=== PATIENT | male | born 1980 | race Caucasian/White ===

== ENCOUNTER 2017-02-26 20:08 | Emergency (ER) | payer OTHER ==
--- NOTE | ~2017-02-26 | CR7 ---
[facility]. [facility] A Service of [facility] & [facility] RADIOLOGY TEXT RESULTS PATIENT: ROB JORDAN LOCATION: SED : [birth year] UNIT #: [id number] AGE: [address]: Alexandre Avalos MD SEX: M ORDER DR: [id number] [place] [id number] E MR#: [id number] Acc #: [id number] NAME: ROB JORDAN : 1980 SEX: M STUDY DATE/TIME: 02/26/2017 20:50 UNIT: SED ROOM: STUDY DESCRIPTION: CR Abdomen Single AP View Attending Physician: Alexandre Avalos M.D. Ordering Physician: Alexandre Avalos M.D. Primary Care Physician: Kole Sol M.D. MEDICAL IMAGING REPORT This report is preliminary unless electronic signature is present. EXAM AP abdomen. HISTORY Hematuria and left flank pain since yesterday. FINDINGS The bowel gas pattern is normal. No bowel dilatation or displacement. No abnormal calcifications. Visualized skeletal structures are unremarkable. IMPRESSION Negative. Normal bowel gas pattern. No abnormal calcifications. Dictated by... Dom Perales M.D. THIS IS AN ELECTRONICALLY VERIFIED REPORT Dom Perales M.D. at 02/27/2017 5:39 PM PETER/nba TD: 02/27/2017 09:41 JOB #: [id number] MEDICAL IMAGING REPORT Page 1 of 1
[~2017-02-26 20:08] MED LIST: AMOXICILLIN500 M1 PO; DOLOBID PO; FLOMAX0.4 M1 PO; METHADONE PO; NO MEDICATIONS; NORCO1 TAB 10/3 PO; PAXIL PO; SUPRAX400 M1 PO; XANAX2 MG PO; ZOFRAN ODT4 MG/UDTAB PO
[2017-02-26 20:36] LABS: URINE SOURCE CLEAN CATCH
[2017-02-26 20:37] LABS: URINE APPEARANCE HAZY; URINE BILIRUBIN NEG (NEG); URINE BLOOD 3+ (NEG); URINE COLOR RED; URINE GLUCOSE NEG (NORM); URINE KETONE TRACE (NEG); URINE LEUKOCYTE ESTERASE 1+ (NEG); URINE NITRATE POS (NEG); URINE PROTEIN 2+ (NEG); URINE SPECIFIC GRAVITY 1.025 (1.003-1.035)
[2017-02-26 20:38] LABS: MICRO INDICATED? YES
[2017-02-26 20:39] LABS: CULTURE INDICATED? YES; URINE BACTERIA 1+ (NEG); URINE RBC 200-300 /[HPF] (0-2); URINE SQUAMOUS EPITHELIAL CELL FEW /[HPF]
== END 2017-02-26 21:35 | disposition home or self-care (01) ==
LOC: SED 20:08
PROVIDERS: Emergency Medicine
DX: N30.91 Cystitis, unspecified with hematuria (principal); F17.200 Nicotine dependence, unspecified, uncomplicated
CPT/HCPCS: 74000; 81003; 87086; 96372; 99284; J1885

== ENCOUNTER 2017-04-01 19:09 | Emergency (ER) | payer OTHER ==
[~2017-04-01] VITALS: Ht 175.3 cm; Wt 81.6 kg
--- NOTE | ~2017-04-01 | CT101 ---
[facility]. [facility] A Service of [facility] RADIOLOGY TEXT RESULTS PATIENT: ROB JORDAN LOCATION: SED : [birth year] UNIT #: [id number] AGE: [address]: Jeanie Martinez SEX: M ORDER DR: [id number] [address] [address] [id number] E MR#: [id number] Acc #: [id number] NAME: ROB JORDAN : 1980 SEX: M STUDY DATE/TIME: 04/01/2017 20:24 UNIT: SED ROOM: STUDY DESCRIPTION: CT Maxillofacial Area Wo Cont Attending Physician: Jeanie Martinez Pa-C Ordering Physician: Jeanie Martinez Pa-C Primary Care Physician: Kole Sol M.D. MEDICAL IMAGING REPORT This report is preliminary unless electronic signature is present. EXAM CT maxillofacial bones. HISTORY 36-year-old male with upper dental pain and facial swelling. Left orbital pain since this morning. TECHNIQUE Axial images performed through the maxillofacial bones without contrast. Multiplanar reconstructed images reviewed a workstation. This CT exam was performed with one or more of the following radiation dose reduction techniques: automatic exposure control, adjustment of mA and/or kV according to patient size, and iterative reconstruction. FINDINGS Patient demonstrates extensive dental caries and extensive periodontal disease within the remaining dentition. No definite abscess is identified though the study is limited without contrast. There is soft tissue swelling particularly in the left maxillary and facial soft tissues. Suspected periodontal abscess involving the left incisors. There are enlarged submandibular nodes bilaterally. Also mild enlarged anterior cervical lymph nodes. No evidence of paranasal sinus disease. The orbits unremarkable. IMPRESSION Left facial and left anterior maxillary, soft tissue swelling edema may reflect cellulitis or reactive due to adjacent periodontal disease. The patient demonstrates extensive dental caries within the remaining dentition, and there is severe periodontal disease involving one of the left upper incisors or free molars. This may be the site of underlying infection. Further dental evaluation may be warranted. No discrete abscess identified. The study limited due to lack of IV contrast. [facility] A Service of [facility] & [facility] RADIOLOGY TEXT RESULTS PATIENT: ROB JORDAN LOCATION: SED : [birth year] UNIT #: [id number] AGE: [address]: Jeanie Martinez SEX: M ORDER DR: Dictated by... Simran Tilley M.D. THIS IS AN ELECTRONICALLY VERIFIED REPORT Simran Tilley M.D. at 04/02/2017 2:04 PM Song TD: 04/01/2017 23:19 JOB #: [id number] MEDICAL IMAGING REPORT Page 1 of 1
[2017-04-01 19:47] LABS: BASOPHIL# 0.1 X10e3 (0-0.3); BASOPHIL% 0.8 % (0-2.5); EOSINOPHIL# 0.1 X10e3 (0-0.7); EOSINOPHIL% 0.6 % (0.0-7.0); HEMATOCRIT 44.2 % (38.0-50.0); HEMOGLOBIN 15.2 gm/dL (13.0-16.0); LYMPHOCYTE# 2.6 X10e3 (1.0-3.5); LYMPHOCYTE% 20.2 % (17.0-45.0); MEAN CELL VOLUME 85.5 FL (83-96); MEAN CORPUSCULAR HEMOGLOBIN 29.4 PG (28-34); MEAN CORPUSCULAR HGB CONC 34.3 g/dL (30-36); MEAN PLATELET VOLUME 8.3 FL (6.5-11.5); MONOCYTE# 0.7 X10e3 (0-1.0); MONOCYTE% 5.7 % (3.0-12.0); NEUTROPHIL# 9.2 X10e3 (1.5-7.1); NEUTROPHIL% 72.7 % (40-75); PLATELET COUNT 202 X10e3 (140-420); RED BLOOD COUNT 5.17 X10e (3.90-5.60); RED CELL DISTRIBUTION WIDTH 13.5 % (11.0-15.5); WHITE BLOOD COUNT 12.7 X10e3 (4.0-10.5)
[2017-04-01 19:48] LABS: DIFF IND NO
[2017-04-01 20:06] LABS: BILIRUBIN,TOTAL 0.4 mg/dL (0.2-2.0); BUN/CREATININE RATIO 17.5; CALCIUM SERUM 9.8 mg/dL (8.4-10.2); CREATININE SERUM 0.8 mg/dL (0.6-1.4); GLOM FILT RATE Estimated 114.2 mL/min (>60); POTASSIUM 3.7 mmol/L (3.5-5.1); PROTEIN TOTAL SERUM 8.1 g/dL (6.0-8.3)
== END 2017-04-01 22:01 | disposition home or self-care (01) ==
LOC: SED 19:09
PROVIDERS: Physician Assistant
DX: L03.211 Cellulitis of face (principal); K05.30 Chronic periodontitis, unspecified; F17.200 Nicotine dependence, unspecified, uncomplicated; Z88.8 Allergy status to other drugs, medicaments and biological substances
CPT/HCPCS: 36415; 70486; 80053; 85025; 96365; 96366; 96375; 99284; J1100; J2270; J2405